=== PATIENT | male | born 1990 | race Caucasian/White ===

== ENCOUNTER → 2020-02-08 | Emergency (ER) | payer BC, OTHER ==
[~2020-02-08] VITALS: Ht 182.9 cm; Wt 72.0 kg
[2020-02-08 17:43] VITALS: BP 134/84
== END | disposition home or self-care (01) ==
LOC: ER 17:40
DX: J06.9 Acute upper respiratory infection, unspecified (principal); B97.89 Other viral agents as the cause of diseases classified elsewhere; R51.9 Headache, unspecified; R11.0 Nausea; Z20.828 Contact with and (suspected) exposure to other viral communicable diseases
CPT/HCPCS: 36415; 99282